=== PATIENT | female | born 1955 | race African-American/Black ===

== ENCOUNTER 2016-12-12 14:52 | Emergency (ER) | payer OTHER ==
[~2016-12-12 14:52] MED LIST: ADVAIR 250-501 EAC1 IH; ALBUTEROL17 G1 IH; ALBUTEROL17 GM INH; ASPIRIN81 M2 PO; ASPIRIN81 MG PO; AZITHROMYCIN1 GM PO; BACTRIM DS TABL1 TAB PO; BENZONATATE PO; CARVEDILOL6.25 MG PO; CIPRO PO; COREG3.125 MG PO; DARVOCET-N 1001 TAB PO; DOXYCYCLINE HY100 M1 PO; FLEXERIL PO; FLEXERIL10 M1 PO; FLONASE 0.05% N16 G1; FUROSEMIDE40 MG PO; IBUPROFEN PO; KEFLEX500 MG PO; KETOPROFEN PO; LANTUS100 U/ML SQ; LASIX PO; LEVEMIR SUBQ; LIPITOR40 MG PO; LISINOPRIL20 MG PO; LISINOPRIL5 MG PO; LORTAB 10-5001 EACH PO; METFORMIN PO; METRONIDAZOLE PO; NEURONTIN300 MG PO; OMEPRAZOLE20 M1 PO; PREDNISONE PO; PYRIDIUM PO; SPIRIVA18 MCG INH; VIBRAMYCIN100 M1 DOB; VICODIN 5/500 T1 TAB PO; VICODIN PO; VOLTAREN75 MG PO; ZITHROMAX1 G/PKT PO; ZOCOR PO
== END 2016-12-12 15:09 | disposition home or self-care (01) ==
LOC: CFTX 14:52
DX: M77.9 Enthesopathy, unspecified (principal); M65.331 Trigger finger, right middle finger; E11.9 Type 2 diabetes mellitus without complications; I10 Essential (primary) hypertension; I50.9 Heart failure, unspecified; F17.210 Nicotine dependence, cigarettes, uncomplicated; J45.909 Unspecified asthma, uncomplicated; Z90.49 Acquired absence of other specified parts of digestive tract; Z90.710 Acquired absence of both cervix and uterus; Z88.8 Allergy status to other drugs, medicaments and biological substances; Z79.4 Long term (current) use of insulin; Z79.899 Other long term (current) drug therapy
CPT/HCPCS: 29125; 99283